=== PATIENT | female | born 1975 | race Caucasian/White ===

== ENCOUNTER 2020-11-04 21:10 | Emergency (ER) | payer BC ==
--- NOTE | 2020-11-04 22:52 | ER ---
Nurse's Notes [facility] Name: Lana Wang Age: 44 yrs Sex: Female : 1975 Arrival Date: 11/04/2020 Time: 21:13 Bed 30 Private MD: Diagnosis: Left Distal Radius fracture Presentation: 11/04 21:31 Chief complaint: Patient states: she tripped and fell about an hour ago injuring left bb wrist no LOC did not hit her head. Coronavirus screen: At this time, the client does not indicate any symptoms associated with coronavirus-19. Ebola Screen: No symptoms or risks identified at this time. Initial Sepsis Screen: Does the patient meet any 2 criteria? No. Patient's initial sepsis screen is negative. Does the patient have a suspected source of infection? No. Patient's initial sepsis screen is negative. Risk Assessment: Do you want to hurt yourself or someone else? Patient reports no desire to harm self or others. Onset of symptoms was November 04, 2020. 21:31 Method Of Arrival: Ambulatory bb 21:31 Acuity: SAMANTA 3 bb Triage Assessment: 21:32 General: Appears uncomfortable, Behavior is calm, cooperative. Pain: Complains of pain bb in left wrist Pain currently is 8 out of 10 on a pain scale. Neuro: Level of Consciousness is awake, alert, obeys commands, Oriented to person, place, time, situation. Cardiovascular: No deficits noted. Respiratory: Respiratory effort is even, unlabored, Respiratory pattern is regular. Musculoskeletal: Capillary refill < 3 seconds, Reports pain in left wrist. Injury Description: fall injury. 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 - Social history:: Smoking status: Patient reports the use of cigarette tobacco products, smokes one-half pack cigarettes per day. Screenin:30 Abuse screen: Denies threats or abuse. Nutritional screening: No deficits noted. bb Tuberculosis screening: No symptoms or risk factors identified. Fall Risk None identified. Assessment: 22:30 Reassessment: No changes from previously documented assessment. see triage assessment. bb 23:15 Reassessment: Patient is alert, oriented x 3, equal unlabored respirations, skin bb warm/dry/pink. splint to left arm in place with good cap refill pt verbalized understanding of and agrees to plan of care discharge instructions given pt ambulated with steady gait to exit. Vital Signs: 21:31 BP 120 / 86; Pulse 95; Resp 16 S; Temp 98.6(TE); Pulse Ox 98% on R/A; Weight 72.57 kg bb (R); Height 5 ft. 5 in. (165.10 cm) (R); Pain 8/10; 23:16 BP 124 / 88; Pulse 100; Resp 16 S; Temp 98.3(TE); Pulse Ox 98% on R/A; bb 21:31 Body Mass Index 26.63 (72.57 kg, 165.10 cm) bb ED Course: 21:13 Patient arrived in ED. ag3 21:32 Triage completed. bb 21:32 Arm band placed on. bb 22:28 XRAY Wrist LEFT 3 view In Process Unspecified. EDMS 22:30 Patient has correct armband on for positive identification. Bed in low position. Call bb light in reach. 22:30 No provider procedures requiring assistance completed. Patient did not have IV access bb during this emergency room visit. 22:33 Vipin Orta MD is Attending Physician. [facility] 22:50 Clinton Hawkins MD is Referral Physician. [facility] 22:52 Orthoglass splint: Sugar tong splint applied on left arm. Sling applied to left arm. jp3 Administered Medications: No medications were administered Outcome: 22:52 Discharge ordered by . [facility] 23:16 Discharged to home ambulatory. bb 23:16 Condition: stable 23:16 Discharge instructions given to patient, Instructed on discharge instructions, follow up and referral plans. no driving heavy equipment, medication usage, Demonstrated understanding of instructions, follow-up care, medications, splint care, Prescriptions given X 1. 23:17 Patient left the ED. bb Signatures: Dispatcher [employer] EDMS Chayito Mejia, RN RN Glen Decker jp3 Lona Lara 3 Vipin Orta MD MD [facility]
--- NOTE | 2020-11-04 22:52 | EDPHYS ---
Physician Documentation [facility] Name: Lana Wang Age: 44 yrs Sex: Female : 1975 Arrival Date: 11/04/2020 Time: 21:13 Bed 30 Private MD: ED Physician Vipin Orta HPI: 11/04 22:41 This 44 yrs old Female presents to ER via Ambulatory with complaints of Wrist mh7 Injury. 22:41 The patient or guardian reports injury, tenderness. The complaints affect the left mh7 wrist diffusely. Context: The problem was sustained at home, resulted from a fall, while walking, on an outstretched hand. Onset: The symptoms/episode began/occurred just prior to arrival, today. Modifying factors: The symptoms are alleviated by nothing, the symptoms are aggravated by movement. Associated signs and symptoms: Pertinent negatives: cyanosis distally, decreased sensation distally, fever, nausea, numbness distally, tingling distally, vomiting. Compartment Syndrome negative for numbness, tingling. 22:43 States that she tripped and fell at home and injured her left wrist. Denies any other mh7 injuries or symptoms prior to falling.. 22:48 States that she took Ibuprofen prior to driving herself to the ED.. 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 - Social history:: Smoking status: Patient reports the use of cigarette tobacco products, smokes one-half pack cigarettes per day. ROS: 22:43 Constitutional: Negative for fever, chills, and weight loss, Eyes: Negative for injury, mh7 pain, redness, and discharge, ENT: Negative for injury, pain, and discharge, Neck: Negative for injury, pain, and swelling, Cardiovascular: Negative for chest pain, palpitations, and edema, Respiratory: Negative for shortness of breath, cough, wheezing, and pleuritic chest pain, Abdomen/GI: Negative for abdominal pain, nausea, vomiting, diarrhea, and constipation, Back: Negative for injury and pain, : Negative for injury, bleeding, discharge, and swelling, Skin: Negative for injury, rash, and discoloration, Neuro: Negative for headache, weakness, numbness, tingling, and seizure, Psych: Negative for depression, anxiety, suicide ideation, homicidal ideation, and hallucinations, Allergy/Immunology: Negative for hives, rash, and allergies, Endocrine: Negative for neck swelling, polydipsia, polyuria, polyphagia, and marked weight changes, Hematologic/Lymphatic: Negative for swollen nodes, abnormal bleeding, and unusual bruising. Exam: 22:43 Constitutional: This is a well developed, well nourished patient who is awake, alert, mh7 and in no acute distress. Head/Face: Normocephalic, atraumatic. Skin: Warm, dry with normal turgor. Normal color with no rashes, no lesions, and no evidence of cellulitis. 22:43 Neuro: Awake and alert, GCS 15, oriented to person, place, time, and situation. Cranial nerves II-XII grossly intact. Motor strength 5/5 in all extremities. Sensory grossly intact. Cerebellar exam normal. Normal gait. Psych: Awake, alert, with orientation to person, place and time. Behavior, mood, and affect are within normal limits. 22:43 Musculoskeletal/extremity: Extremities: noted in the left wrist: decreased ROM, pain, tenderness, ROM: limited active range of motion, in the left wrist, limited passive range of motion, in the left wrist, Circulation is intact in all extremities. Pulses: are normal with no appreciated deficits, Perfusion: the patient is normally perfused throughout, Perfusion: the extremity is normally perfused throughout, Sensation intact. Compartment Syndrome exam of affected extremity: is normal. no numbness, no tingling, no sensation deficit, no palor, no weak pulses, Joints: the left wrist displays limited range of motion, pain at rest, painful range of motion, tenderness, Weight bearing: able to fully bear weight, without difficulty, Tendon exam: specific tendon testing normal through active and passive range of motion Vital Signs: 21:31 BP 120 / 86; Pulse 95; Resp 16 S; Temp 98.6(TE); Pulse Ox 98% on R/A; Weight 72.57 kg bb (R); Height 5 ft. 5 in. (165.10 cm) (R); Pain 8/10; 23:16 BP 124 / 88; Pulse 100; Resp 16 S; Temp 98.3(TE); Pulse Ox 98% on R/A; bb 21:31 Body Mass Index 26.63 (72.57 kg, 165.10 cm) Procedures: 22:55 Splinting: Splint applied to left wrist using Orthoglass splint, sling, applied by [facility] Examined by me, post splint application: neurovascular intact, 2+ distal pulses palpable, brisk capillary refill noted, Patient tolerated well. MDM: 22:48 Differential diagnosis: dislocation, open fracture, closed fracture, contusion, mh7 abrasion. Data reviewed: vital signs, nurses notes, radiologic studies, plain films. Data interpreted: Pulse oximetry: on room air is 98 %. Interpretation: normal. Counseling: I had a detailed discussion with the patient and/or guardian regarding: the historical points, exam findings, and any diagnostic results supporting the discharge/admit diagnosis, radiology results, the need for outpatient follow up, a orthopedic surgeon, to return to the emergency department if symptoms worsen or persist or if there are any questions or concerns that arise at home. Response to treatment: the patient's symptoms have markedly improved after treatment. 22:52 Patient medically screened. [facility] 11/04 21:34 Order name: XRAY Wrist LEFT 3 view 11/04 22:47 Order name: Splint - Sugar Tong - Forearm; Complete Time: 22:52 [facility] Administered Medications: No medications were administered Disposition: 11/04/20 22:52 Discharged to Home. Impression: Left Distal Radius fracture. - Condition is Stable. - Discharge Instructions: Wrist Fracture Treated With Immobilization, [id number], Cast or Splint Care, [id number]. - Prescriptions for Tylenol- Codeine #3 300-30 mg Oral Tablet - take 2 tablets by ORAL route every 6 hours As needed; 30 tablet. - Medication Reconciliation Form, Thank You Letter, Antibiotic Education, Prescription Opioid Use form. - Follow up: Private Physician; When: 1 - 2 days; Reason: Worsening of condition, Recheck today's complaints, Continuance of care, Re-evaluation by your physician. Follow up: Clinotn Hawkins MD; When: 1 - 2 days; Reason: Worsening of condition, Recheck today's complaints, Continuance of care. - Problem is new. - Symptoms have improved. Signatures: Dispatcher [employer] EDChayito Marsh RN RN bb Holmes, Maurice, MD MD [facility] Corrections: (The following items were deleted from the chart) 23:17 22:52 11/04/2020 22:52 Discharged to Home. Impression: Left Distal Radius fracture. bb Condition is Stable. Forms are Medication Reconciliation Form, Thank You Letter, Antibiotic Education, Prescription Opioid Use. Follow up: Private Physician; When: 1 - 2 days; Reason: Worsening of condition, Recheck today's complaints, Continuance of care, Re-evaluation by your physician. Follow up: Dr. Clinton Hawkins; When: 1 - 2 days; Reason: Worsening of condition, Recheck today's complaints, Continuance of care. Problem is new. Symptoms have improved. mh7
[2020-11-04 23:35] VITALS: O2SAT 98
[2020-11-04 23:38] VITALS: BP 124/88; TEMP 98.3
--- NOTE | 2020-11-05 08:32 | RAD REPORT ---
EXAM DESCRIPTION: RAD - Wrist Left 3 View - 11/04/2020 10:28 pm CLINICAL HISTORY: PAIN Pain COMPARISON: No comparisons FINDINGS: Subtle fracture is suspected involving the distal radial metaphysis along the radial aspec t, with mild adjacent soft tissue swelling. No dislocation evident.
== END 2020-11-04 23:17 | disposition home or self-care (01) ==
LOC: ER 21:10
PROC: 2W3DX1Z Immobilization of Left Lower Arm using Splint (ICD-10-PCS; principal; 2020-11-04)
DX: S52.502A Unspecified fracture of the lower end of left radius, initial encounter for closed fracture (principal); W01.0XXA Fall on same level from slipping, tripping and stumbling without subsequent striking against object, initial encounter; Y93.01 Activity, walking, marching and hiking; Y92.009 Unspecified place in unspecified non-institutional (private) residence as the place of occurrence of the external cause; F17.210 Nicotine dependence, cigarettes, uncomplicated
CPT/HCPCS: 99283